=== PATIENT | male | born 1930 | race Caucasian/White ===

== ENCOUNTER 2017-11-10 20:22 | Emergency (ER) | payer MEDICARE, BC ==
[~2017-11-10] VITALS: Ht 182.9 cm; Wt 85.5 kg
[~2017-11-10 20:22] MED LIST: AMARYL 2MG T2 MG/TAB PO; AMARYL1 MG PO; ASPIRIN 32325 MG/TAB PO; ASPIRIN 81M81 MG/TA2 PO; BENADRYL25 M2 PO; CIPRO 500MG TA500 MG PO; CLEOCIN HCL300 MG PO; CLOTRIMAZOLE/BE1 CRE TP; COLACE 100100 MG/CAP PO; COUMADIN 22.5 MG/TAB PO; COUMADIN 5MG5 MG/TAB PO; DIAMOX 250MG250 MG PO; GLUCOPHAGE500 MG/TAB PO; LIPITOR 40MG TA40 MG PO; LOPRESSOR 550 MG/TAB PO; LOTRISONE 0.05%1 CRE TP; NITROSTAT0.4 MG/TAB SL; NORCO 325 MG-51 TAB PO; NORVASC 5MG5 MG/TAB PO; PLAVIX 75MG TAB75 MG PO; PREDNISONE20 MG PO; PRIL40; PROAIR HFA0.09 MG/AC IH; PROCTOZONE-HC2.5% RC; PROTONIX 40MG T40 MG PO; PYRIDIUM200 M1; RANEXA1000 MG PO; RAPAFLO8 MG PO; SINGULAIR 110 MG/TAB PO; TOPROL XL 50MG50 MG PO; TYLENOL 325MG325 MG PO; TYLENOL EXTRA500 M1 PO; XALATAN EYE DROPS OU; ZANTAC 150MG T150 MG PO; ZANTAC 300300 MG PO; ZYRTEC 10MG10 MG PO; [UNRECOGNIZED DRUG - CODE] PO
[2017-11-10 20:28] VITALS: TEMP 97.9
[2017-11-10 21:15] LABS: BASO % 0.4 % (0.0-2.0); EOS # 0.2 (0.0-0.7); EOS % 2.3 % (0-4.0); GRAN # 7.2 (1.4-6.5); GRAN % 78.6 % (42.2-75.2); HEMOGLOBIN 12.3 g/dl (13.5-18.0); LYMPH % 10.9 % (20.0-51.0); MEAN CELL VOLUME 93 fl (80.0-100.0); MEAN CORPUSCULAR HEMOGLOBIN 31 pg (27.0-31.0); MEAN CORPUSCULAR HGB CONC 33 g/dl (33.0-37.0); MEAN PLATELET VOLUME 9.7 fl (7.4-10.4); MONO # 0.7 (0.1-0.6); MONO % 7.5 % (1.7-9.3); PLATELET COUNT 167 K/mm3 (130-400); RED BLOOD COUNT 3.94 M/mm3 (4.20-5.60); WHITE BLOOD COUNT 9.2 K/mm3 (4.8-10.8)
[2017-11-10 21:18] LABS: HEMATOCRIT 36.8 % (42.0-52.0)
[2017-11-10 21:23] LABS: INR 1.8 (0.8-3.0); PROTHROMBIN TIME 21.3 SECONDS (9.7-12.8)
[2017-11-10 21:28] LABS: ADJUSTED CALCIUM 9.2 mg/dL (8.4-10.2); ALBUMIN 4.3 gm/dL (3.5-5.0); BILIRUBIN,TOTAL 0.8 mg/dL (0.0-1.0); C-REACTIVE PROTEIN 2.6 mg/dL (0.0-0.9); CALCIUM 9.4 mg/dL (8.4-10.2); CREATININE, serum 1.5 mg/dL (0.66-1.25); POTASSIUM 4.5 mmol/L (3.4-5.0); TOTAL PROTEIN 7.5 gm/dL (6.4-8.2); URIC ACID 8.9 mg/dL (3.5-8.5)
[2017-11-10 21:32] LABS: ERYTHROCYTE SEDIMENTATION RATE 29 mm/hr (0-30)
[2017-11-10] MEDS ORDERED: PLAVIX 75MG TAB75 MG PO (21:40)
[2017-11-10] MEDS ORDERED: IMDUR 30MG30 MG/TAB PO (21:41)
[2017-11-10] MEDS ORDERED: LASIX 20MG TABL20 MG PO (21:41)
[2017-11-10] MEDS ORDERED: PRINIVIL5 MG PO (21:42)
[2017-11-10] MEDS ORDERED: PROBIOTIC PO (21:43)
[2017-11-10] MEDS ORDERED: ATARAX 25MG25 MG/TAB PO (21:44)
[2017-11-10] MEDS ORDERED: MEDROL 4MG DOSPA4 MG PO (23:05)
[2017-11-10] MEDS ORDERED: ULTRAM 50MG TAB50 MG PO (23:05)
[2017-11-10 23:30] VITALS: BP 146/71; PULSE 72
== END 2017-11-10 23:00 | disposition home or self-care (01) ==
LOC: COL.ER 20:22
PROVIDERS: Emergency Medicine
DX: M25.561 Pain in right knee (principal); I10 Essential (primary) hypertension; I25.10 Atherosclerotic heart disease of native coronary artery without angina pectoris; Z86.718 Personal history of other venous thrombosis and embolism; Z95.0 Presence of cardiac pacemaker; Z95.5 Presence of coronary angioplasty implant and graft; Z90.49 Acquired absence of other specified parts of digestive tract; Z79.82 Long term (current) use of aspirin; Z79.01 Long term (current) use of anticoagulants; Z79.02 Long term (current) use of antithrombotics/antiplatelets
CPT/HCPCS: J1170; J2405; J2930

== ENCOUNTER → 2019-06-10 | Outpatient (CLI) | payer MEDICARE, BC ==
[~2019-06-10] MED LIST changes: +ATARAX 25MG25 MG/TAB PO; +IMDUR 30MG30 MG/TAB PO; +LASIX 20MG TABL20 MG PO; +MEDROL 4MG DOSPA4 MG PO; +PRINIVIL5 MG PO; +PROBIOTIC PO; +ULTRAM 50MG TAB50 MG PO
== END ==
LOC: COL.RAD 08:47
DX: N18.4 Chronic kidney disease, stage 4 (severe) (principal)

== ENCOUNTER 2020-04-11 10:05 | Emergency (ER) | payer MEDICARE, BC ==
[~2020-04-11] VITALS: Ht 182.9 cm; Wt 88.6 kg
[~2020-04-11 10:05] MED LIST changes: +COLESTID 1GM1 G PO; +LEVAQUIN 2250 MG/TAB PO; +ZETIA 10MG TAB10 MG PO; +ZOLOFT 100MG100 MG PO; +ZYLOPRIM 100MG100 MG PO
[2020-04-11 10:12] VITALS: TEMP 98.3
[2020-04-11 10:26] LABS: COLLECTION METHOD CLEAN CATCH
[2020-04-11 10:43] LABS: PH 5 (5-8); SQUAMOUS EPITHELIAL 0-2 /hpf; URINE APPEARANCE Clear; URINE BACTERIA None Seen /hpf; URINE BILIRUBIN Negative (NEGATIVE); URINE BLOOD Negative (NEGATIVE); URINE COLOR Yellow; URINE GLUCOSE Negative (NEGATIVE); URINE KETONE Negative (NEGATIVE); URINE LEUKOCYTE ESTERASE Negative (NEGATIVE); URINE NITRATE Negative (NEGATIVE); URINE PROTEIN(semi-quant) Negative (NEGATIVE); URINE RBC 0-2 /hpf; URINE UROBILINOGEN Negative (NEGATIVE)
[2020-04-11 10:58] LABS: BASO % 0.5 % (0.0-2.0); EOS # 0.1 (0.0-0.7); EOS % 2.1 % (0-4.0); GRAN # 4.5 (1.4-6.5); GRAN % 72.6 % (42.2-75.2); HEMATOCRIT 37.3 % (42.0-52.0); HEMOGLOBIN 12.4 g/dl (13.5-18.0); LYMPH # 1.1 (1.2-3.4); LYMPH % 17.4 % (20.0-51.0); MEAN CELL VOLUME 100 fl (80.0-100.0); MEAN CORPUSCULAR HEMOGLOBIN 33 pg (27.0-31.0); MEAN CORPUSCULAR HGB CONC 33 g/dl (33.0-37.0); MEAN PLATELET VOLUME 10.7 fl (7.4-10.4); MONO # 0.4 (0.1-0.6); MONO % 6.9 % (1.7-9.3); PLATELET COUNT 120 K/mm3 (130-400); RED BLOOD COUNT 3.75 M/mm3 (4.20-5.60); REDCELL DISTRIBUTION WIDTH-CV 12.7 % (11.5-14.5)
[2020-04-11 11:10] LABS: INR 2.9 (0.8-3.0); PROTHROMBIN TIME 33.3 SECONDS (9.7-12.8)
[2020-04-11 11:12] LABS: PARTIAL THROMBOPLASTIN TIME 39.1 SECONDS (26.0-37.0)
[2020-04-11 11:15] LABS: ALBUMIN 3.9 gm/dL (3.5-5.0); BILIRUBIN,TOTAL 0.9 mg/dL (0.0-1.0); CALCIUM 9.3 mg/dL (8.4-10.2); CREATININE, serum 1.44 (0.66-1.25); MAGNESIUM 2.2 mg/dL (1.6-2.3); POTASSIUM 4.6 mmol/L (3.4-5.0); TOTAL PROTEIN 6.9 gm/dL (6.4-8.2)
[2020-04-11 11:50] LABS: THYROID STIMULATING HORMONE 1.43 uIU/mL (0.465-4.680)
[2020-04-11] MEDS ORDERED: BUSPAR10 MG PO (12:04)
[2020-04-11] MEDS ORDERED: SEROQUEL 2525 MG/TAB PO (12:04)
[2020-04-11 14:28] VITALS: BP 140/85; PULSE 75
== END 2020-04-11 14:29 | disposition home or self-care (01) ==
LOC: COL.ER 10:05
PROVIDERS: Emergency Medicine
DX: F32.9 Major depressive disorder, single episode, unspecified (principal); E11.9 Type 2 diabetes mellitus without complications; I10 Essential (primary) hypertension; I48.91 Unspecified atrial fibrillation; J44.9 Chronic obstructive pulmonary disease, unspecified; I25.10 Atherosclerotic heart disease of native coronary artery without angina pectoris; Z79.01 Long term (current) use of anticoagulants; Z79.02 Long term (current) use of antithrombotics/antiplatelets; Z79.84 Long term (current) use of oral hypoglycemic drugs; Z86.718 Personal history of other venous thrombosis and embolism